=== PATIENT | male | born 1945 | race African-American/Black ===

== ENCOUNTER 2024-08-19 12:50 | Emergency (ER) | payer OTHER ==
[~2024-08-19] VITALS: Ht 185.4 cm; Wt 75.0 kg
[2024-08-19 13:04] VITALS: TEMP 36.8; O2SAT 94
[2024-08-19 13:10] VITALS: BP 116/55; PULSE 84; RESP 18; O2SAT 94
== END 2024-08-19 13:22 | disposition home or self-care (01) ==
LOC: ER 12:50
DX: R55 Syncope and collapse (principal); I10 Essential (primary) hypertension
CPT/HCPCS: 99283